=== PATIENT | female | born 1965 | race Caucasian/White ===

== ENCOUNTER → 2016-10-22 | Outpatient (REF) ==
--- NOTE | 2016-10-22 13:20 | REP ---
LUMBAR SPINE SERIES: THREE VIEWS. History: Degenerative disc disease. No comparison views. Findings: Lumbar vertebral body heights are preserved. There is some straightening of the normal lumbar lordosis. Discogenic spurring is seen throughout the lumbar spine. Some disc space narrowing is noted at L4-5. Discogenic spurring is most pronounced at L4-5, L3-4, and L2-3. On the frontal radiograph there is paravertebral discogenic spurring at L2-3 and L1-2, right greater than left. Pedicles and posterior elements are intact. There is no evidence of spondylolysis or spondylolisthesis. There are clips in right upper quadrant of the abdomen. Psoas margins are symmetric. Sacrum and SI joints are intact. Impression: Diffuse degenerative disc disease. Straightening. Signed by Isiah Paredes MD 10/22/2016 02:04 P
== END ==
LOC: M SMT 11:19
PROVIDERS: ATTEND Internal Medicine
DX: M51.37 Other intervertebral disc degeneration, lumbosacral region (principal)